=== PATIENT | female | born 1935 | race Caucasian/White ===

== ENCOUNTER 2017-02-25 11:49 | Emergency (ER) | payer MEDICARE, OTHER ==
[~2017-02-25 11:49] MED LIST: ADULT ASPIRIN81 MG PO; BACTRIM DS TABL1 TAB PO; CYMBALTA20 M1 PO; CYMBALTA30 M1 PO; ECOTRIN325 M2 PO; FLUOXETINE HCL20 MG PO; LABETALOL HCL200 M1 PO; LABETALOL PO; LETROZOLE2.5 M1 PO; LISINOPRIL PO; LOPRESSOR50 M1 PO; NORCO 5/325 TAB1 TAB PO; NORFLEX100 MG PO; OMEPRAZOLE40 M2 PO; PEPTO-BISM262 MG/11 PO; PRAVACHOL20 M1 PO; PRAVACHOL20 MG PO; SENNA S TABLET1 EACH PO; ULTRAM50 M1 PO; VERAPAMIL ER180 M2 PO; VERAPAMIL HCL180 M1 PO; VERAPAMIL PO; VITAMIN D31000 UNI3 PO; vitamin D2
[2017-02-25 14:59] LABS: BASO % 0.2 % (0-2); EOS % 1.6 % (0-7); EOSINOPHIL ABSOLUTE COUNT 0.2 tho/cmm (0.0-0.7); HCT-HEMATOCRIT 41.9 % (34.0-49.0); HGB-HEMOGLOBIN 13.6 gm/dl (12.0-15.5); IMMATURE GRANULOCYTES ABSOLUTE 0.02 tho/cmm (0-0.03); IMMATURE GRANULOCYTES PERCENT 0.2 % (0-0.3); LYMPH % 4.7 % (20-45); LYMPH ABSOLUTE COUNT 0.6 tho/cmm (0.8-4.5); MCH (MEAN CORPUSCULAR HGB) 29.9 pg (28.0-32.0); MCHC MEAN CORPUSCULAR HGB CONC 32.5 % (32.0-36.0); MCV (MEAN CELL VOLUME) 92.1 fl (82.0-96.0); MEAN PLATELET VOLUME 9.7 cmc (9.4-12.4); MONO % 3.3 % (0-12); MONOCYTE ABSOLUTE COUNT 0.4 tho/cmm (0.0-1.2); NEUTROPHIL ABSOLUTE COUNT 11.3 tho/cmm (1.6-8.0); NEUTROPHIL-AUTOMATED 11.3 tho/cmm (1.6-8.0); PLATELET COUNT 239 tho/cmm (150-450); RED BLOOD COUNT 4.55 mil/cmm (4.00-5.20); RED CELL DISTRIBUTION WIDTH 12.6 % (12.4-16.4); WHITE BLOOD COUNT 12.5 tho/cmm (4.0-10.0)
[2017-02-25 15:10] LABS: ALB/GLOB RATIO 0.9 (0.8-2.0); ALBUMIN 3.3 g/dl (3.5-5.0); ALKALINE PHOSPHATASE 80 U/L (33-138); ALT/SGPT 21 U/L (12-78); ANION GAP 12 mmol/L (0-20); AST/SGOT 20 U/L (10-40); BILIRUBIN,TOTAL 0.5 mg/dl (0-1.5); BLOOD UREA NITROGEN 18 mg/dl (6-24); CALCIUM 8.6 mg/dl (8.5-10.5); CARBON DIOXIDE-VENOUS 30 mmol/L (22-32); CHLORIDE 105 mmol/l (96-110); CREATININE 0.62 mg/dl (0.50-1.10); GLUCOSE 96 mg/dL (70-110); POTASSIUM 3.7 mmol/L (3.7-5.1); SODIUM 143 mmol/L (135-145); eGFR VALUE FOR BLACK >90 mL/Min
[2017-02-25 16:47] LABS: URINE BILIRUBIN MODERATE (NEG); URINE BLOOD SMALL (NEG); URINE GLUCOSE (UA) NEGATIVE (NEG); URINE KETONE LARGE (NEG); URINE LEUKOCYTE ESTERASE POSITIVE (NEG); URINE NITRITE POSITIVE (NEG); URINE PROTEIN MODERATE (NEG); URINE SPECIFIC GRAVITY 1.025 (1.003-1.030)
[2017-02-25 16:48] LABS: URINE APPEARANCE HAZY; URINE COLOR ORANGE
[2017-02-25 16:49] LABS: URINE OTHER VOLUME 2 ML
[2017-02-25 17:01] LABS: URINE EPITHELIAL CELLS 0-1 /[HPF] (0-10); URINE MUCUS 2+; URINE WBC 0 /[HPF] (0-5)
[2017-02-25] MEDS ORDERED: NORCO 5-325 TA1 EACH PO (17:20)
== END 2017-02-25 17:29 ==
LOC: EDMED 11:49
PROVIDERS: Emergency Medicine
DX: S16.1XXA Strain of muscle, fascia and tendon at neck level, initial encounter (principal); S46.912A Strain of unspecified muscle, fascia and tendon at shoulder and upper arm level, left arm, initial encounter; N39.0 Urinary tract infection, site not specified; F41.9 Anxiety disorder, unspecified; Z85.3 Personal history of malignant neoplasm of breast; Z85.42 Personal history of malignant neoplasm of other parts of uterus; Z79.899 Other long term (current) drug therapy; Z98.890 Other specified postprocedural states; X58.XXXA Exposure to other specified factors, initial encounter